=== PATIENT | male | born 1975 | race Caucasian/White ===

== ENCOUNTER 2021-05-24 12:00 | Emergency (ER) | payer OTHER ==
[~2021-05-24] VITALS: Ht 180.3 cm; Wt 88.6 kg
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
[2021-05-24] MEDS ORDERED: NORCO, ANEXSIA 5/325MG TABLET (HYDROcodone/ACETAMINOPHEN) PO ONE (14:05)
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
[2021-05-24 15:12] VITALS: BP 138/84
== END 2021-05-24 15:15 | disposition home or self-care (01) ==
LOC: M ED 12:00
DX: S13.4XXA Sprain of ligaments of cervical spine, initial encounter (principal); M79.605 Pain in left leg; M79.601 Pain in right arm; M79.602 Pain in left arm; T07.XXXA Unspecified multiple injuries, initial encounter; V49.40XA Driver injured in collision with unspecified motor vehicles in traffic accident, initial encounter; M25.78 Osteophyte, vertebrae; I25.2 Old myocardial infarction; I10 Essential (primary) hypertension; F17.200 Nicotine dependence, unspecified, uncomplicated